=== PATIENT | female | born 1995 ===

== ENCOUNTER 2019-06-22 21:33 | Emergency (ER) | payer SELFPAY ==
[2019-06-22] MEDS ORDERED: Fluorescein Opthalmic Strip ONE (22:14)
[2019-06-22] MEDS ORDERED: Proparacaine 0.5% Opth 15 ML BOT ONE (22:21)
--- NOTE | 2019-06-22 23:53 | RAD ---
EXAM: Two views chest PROVIDED CLINICAL HISTORY: Chest pain. Right eye redness. Shortness of breath for one day. COMPARISON: None FINDINGS: Cardiac silhouette and pulmonary vasculature are within normal limits. The lungs are clear. The osse ous structures have a normal appearance. IMPRESSION: No acute cardiopulmonary process.
== END 2019-06-22 23:20 | disposition home or self-care (01) ==
LOC: ERS 21:33
DX: S20.219A Contusion of unspecified front wall of thorax, initial encounter (principal); S05.01XA Injury of conjunctiva and corneal abrasion without foreign body, right eye, initial encounter; F10.129 Alcohol abuse with intoxication, unspecified; G47.00 Insomnia, unspecified; F32.9 Major depressive disorder, single episode, unspecified; F17.210 Nicotine dependence, cigarettes, uncomplicated; X58.XXXA Exposure to other specified factors, initial encounter
CPT/HCPCS: 71046; 93005